=== PATIENT | male | born 1970 ===

== ENCOUNTER 2016-07-07 05:27 | Emergency (ER) | payer SELFPAY ==
--- NOTE | 2016-07-07 06:01 | ER NURSING DOCUMENTATION ---
Nurse's Notes [facility] Name:Clayton Weaver Age:46 yrs Sex:Male :1970 Arrival Date:07/07/2016 Time:05:27 Bed4 Private MD: Diagnosis:Dental pain Presentation: 07/07 05:38 Presenting complaint: Patient states: right upper dental pain after having molar lb extracted 1 week ago. Transition of care: Home. 05:38 Acuity: CAS 5 lb 05:38 Method Of Arrival: Walk In lb 05:41 Notified ED Physician of Braulio Ellis notified. lb Triage Assessment: 05:39 General: Appears comfortable, Behavior is cooperative, pleasant. Pain: Complains of lb pain in right buccal mucosa Pain does not radiate. Pain currently is 3 out of 10 on a pain scale. Historical: - Allergies: No known drug Allergies; - Home Meds: 1. None - PMHx: None; - PSHx: Appendectomy; - Tetanus: < 10 years. - Ebola Screening: : Patient denies exposure to infectious person. Patient denies travel to an Ebola-affected area in the 21 days before illness onset. . - Immunization history: Flu Vaccine None. - Social history: Smoking status: Patient states was never smoker of tobacco. Patient/guardian denies using alcohol. - Code Status:: Full code. Screenin:40 Infectious Disease Risk None. Abuse screen: Denies threats or abuse. Denies injuries lb from another. Nutritional screening: No deficits noted. Assessment: 05:40 See Triage Assessment done by same RN. lb Vital Signs: 05:40 BP 140 / 87; Pulse 81; Resp 16; Temp 98.5(TE); Pulse Ox 96% on R/A; Weight 65.77 kg; lb Height 5 ft. 6 in. (167.64 cm); Pain 3/10; 05:40 Body Mass Index 23.40 (65.77 kg, 167.64 cm) lb ED Course: 05:31 Patient arrived in ED. ma1 05:38 Mya Yanez is Primary Nurse. lb 05:39 Triage completed. lb 05:41 Valuables Remains with patient. lb 05:45 Rodríguez Ramsey MD is Attending Physician. ezekiel 05:52 Santosh Yanez DDS is Referral Physician. ezekiel Administered Medications: 06:00 Drug: Penicillin VK 500 mg; Route: PO; lb 06:01 Follow up: Response: No adverse reaction lb 06:01 Drug: Flagyl 500 mg; Route: PO; lb 06:01 Follow up: Response: No adverse reaction Outcome: 05:52 Discharge ordered by . ezekiel 06:01 Discharged to home ambulatory. lb 06:01 Condition: good 06:01 Discharge Assessment: Patient awake, alert and oriented x 3. No cognitive and/or functional deficits noted. Patient verbalized understanding of disposition instructions. 06:01 Instructed on discharge instructions, follow up and referral plans. 06:01 Patient left the ED. 07/08 13:24 Discharge F/U Call: Unable to reach: no answer ma Signatures: Kinsey Munoz, Rodríguez Verduzco RN, ma, MD MD jm Bollock, Lynda lb Addison, Melissa ma1
--- NOTE | 2016-07-07 06:02 | ER PHYSICIAN DOCUMENTATION ---
Physician Documentation [facility] Name:Clayton Weaver Age:46 yrs Sex:Male :1970 Arrival Date:07/07/2016 Time:05:27 Bed4 Private MD: Rodríguez Rivas Disposition: 07/07/16 05:52 Discharged to Home/Self Care. Impression: Dental pain. - Condition is Good. - Discharge Instructions: DENTAL PAIN, Alveolalgia - DRY SOCKET. - Prescriptions for penicillin V potassium 500 mg Oral tablet - take 1 tablet by ORAL route 3 times per day for 7 days; 21 tablet. Flagyl 500 mg Oral Tablet - take 1 tablet by ORAL route every 12 hours for 7 days; 14 tablet. - Medical Reconciliation form form. - Follow up: Santosh Yanez DDS; When: Today; Reason: Continuance of care. - Problem is new. - Symptoms are unchanged. HPI: 07/07 05:30 This 46 yrs old /[place] Male presents to ER via Walk In with complaints of jm Mouth Swelling. 05:30 The patient presents with pain, that is acute. Onset: The symptom(s)/episode jm began/occurred yesterday, and became worse today. Associated signs and symptoms: Pertinent negatives: fever, swelling. The patient has been recently seen by a physician: Dr. Baca- last Friday who extracted his upper R molar. He's felt much better after, but now has pain and is worried about infection. . Historical: - Allergies: No known drug Allergies; - Home Meds: 1. None - PMHx: None; - PSHx: Appendectomy; - Tetanus: < 10 years. - Ebola Screening: : Patient denies exposure to infectious person. Patient denies travel to an Ebola-affected area in the 21 days before illness onset. . - Immunization history: Flu Vaccine None. - Social history: Smoking status: Patient states was never smoker of tobacco. Patient/guardian denies using alcohol. - Code Status:: Full code. ROS: 05:30 Constitutional: Negative for fever. jm 05:30 ENT: Positive for dental pain, Negative for difficulty swallowing, difficulty handling secretions. 05:30 Neck: Negative for rash, stiffness. Exam: 05:30 Constitutional: The patient appears alert, awake. jm 05:30 ENT: Mouth: is normal, Dental exam: missing teeth, specifically the upper right second molar (#2), possible dry socket?. 05:30 Neck: ROM/movement: is normal, Lymph nodes: no appreciated lymphadenopathy. 05:30 Cardiovascular: Rate: normal, Rhythm: regular. Vital Signs: 05:40 BP 140 / 87; Pulse 81; Resp 16; Temp 98.5(TE); Pulse Ox 96% on R/A; Weight 65.77 kg; lb Height 5 ft. 6 in. (167.64 cm); Pain 3/10; 05:40 Body Mass Index 23.40 (65.77 kg, 167.64 cm) lb MDM: 05:33 Differential diagnosis: Dry sockets. Data reviewed: vital signs, nurses notes, and as a jm result, I will discharge patient. Counseling: I had a detailed discussion with the patient and/or guardian regarding: the historical points, exam findings, and any diagnostic results supporting the discharge/admit diagnosis, the need for outpatient follow up, a dentist. ED course: Will do course of flagyl and PCN, as pt does not have insurance to pay for expensive clinda. Pt will try to see Dr. Dang again today. I feel pt has dry sockets. . 05:45 Patient medically screened. ezekiel Dispensed Medications: 06:00 Drug: Penicillin VK 500 mg; Route: PO; lb 06:01 Follow up: Response: No adverse reaction lb 06:01 Drug: Flagyl 500 mg; Route: PO; lb 06:01 Follow up: Response: No adverse reaction lb Signatures: Rodríguez Ramsey MD MD jm Bollock, Lynda lb
[2016-07-07] MEDS ORDERED: PENICILLIN V POTASSIUM 250 MG TABLET PO ONE (06:08)
[2016-07-07] MEDS ORDERED: metroNIDAZOLE 500 MG TABLET PO ONE (06:08)
== END 2016-07-07 06:01 | disposition home or self-care (01) ==
LOC: ER 05:27
DX: K08.89 Other specified disorders of teeth and supporting structures (principal); Z98.818 Other dental procedure status
CPT/HCPCS: 99283